=== PATIENT | female | born 2000 | race Two or more races ===

== ENCOUNTER 2022-12-28 03:38 | Emergency (ER) | payer OTHER ==
[~2022-12-28] VITALS: Ht 157.5 cm; Wt 72.6 kg
[2022-12-28 03:41] VITALS: BP 126/82; TEMP 98; O2SAT 100
== END 2022-12-28 04:00 | disposition home or self-care (01) ==
LOC: ER 03:55 → EDBD 03:55 → ER 04:00
DX: R07.89 Other chest pain (principal); V89.2XXA Person injured in unspecified motor-vehicle accident, traffic, initial encounter; Y93.89 Activity, other specified; Y92.89 Other specified places as the place of occurrence of the external cause; Y99.8 Other external cause status